=== PATIENT | female | born 1985 | race Caucasian/White ===

== ENCOUNTER 2018-09-22 13:40 | Outpatient (CLI) | payer MEDICAID ==
[2018-09-22 15:24] LABS: ADD UMIC YES; UR ASCORBIC ACID NEGATIVE (NEGATIVE); UR BACTERIA FEW /HPF (NONE SEEN); UR BILIRUBIN (Dip) NEGATIVE (NEGATIVE); UR BLOOD (Dip) NEGATIVE (NEGATIVE); UR CLARITY CLOUDY (CLEAR); UR COLOR STRAW (YELLOW); UR GLUCOSE (Dip) NEGATIVE (NEGATIVE); UR KETONES (Dip) 1+ mg/dL (NEGATIVE); UR LEUKOCYTE ESTERASE (Dip) 2+ Leu/ul (NEGATIVE); UR NITRITE (Dip) NEGATIVE (NEGATIVE); UR RBC 3 /HPF (0-5); UR SPECIFIC GRAVITY (Dip) 1.003 (1.003-1.030); UR SQUAMOUS EPITHELIAL CELL MANY /HPF (FEW); UR TOTAL PROTEIN (Dip) NEGATIVE (NEGATIVE); UR UROBILINOGEN (Dip) NEGATIVE (NEGATIVE); UR WBC 6 /HPF (0-5)
== END 2018-09-22 17:00 | disposition home or self-care (01) ==
LOC: OBT 13:40 → L-D 13:41 → OBT 17:00
DX: O62.9 Abnormality of forces of labor, unspecified (principal); Z3A.23 23 weeks gestation of pregnancy
CPT/HCPCS: 76817; 81001

== ENCOUNTER 2019-01-06 11:46 | Inpatient (IN) | payer MEDICAID ==
[2019-01-06 12:47] LABS: ADD MAN DIFF? NO
[2019-01-06 12:59] LABS: BASOPHILS % 0.1 % (0.0-2.0); EOSINOPHILS % 0.3 % (0.0-7.0); HEMATOCRIT 40.9 % (37.0-47.0); HEMOGLOBIN 13.7 g/dl (12.0-16.0); LYMPHOCYTES # 2.3 10^3/ul (0.8-2.9); LYMPHOCYTES % 30.7 % (15.0-51.0); MEAN CORPUSCULAR HEMOGLOBIN 28.5 pg (29.0-33.0); MEAN CORPUSCULAR HGB CONC 33.5 g/dl (32.0-37.0); MEAN CORPUSCULAR VOLUME 85.2 fl (82.0-101.0); MEAN PLATELET VOLUME 11.1 fl (7.4-10.4); MONOCYTE # 0.5 10^3/ul (0.3-0.9); MONOCYTES % 7.3 % (0.0-11.0); NEUTROPHIL # 4.5 10^3/ul (1.6-7.5); NEUTROPHILS % 60.8 % (39.0-77.0); PLATELET COUNT 261 10^3/UL (140-415); RED CELL DISTRIBUTION WIDTH 13.7 % (11.5-14.5)
[2019-01-06 12:59] LABS: WHITE BLOOD COUNT 7.4 10^3/ul (4.8-10.8)
[2019-01-06 13:02] LABS: ADD UMIC YES; UR ASCORBIC ACID NEGATIVE (NEGATIVE); UR BACTERIA FEW /HPF (NONE SEEN); UR BILIRUBIN (Dip) NEGATIVE (NEGATIVE); UR BLOOD (Dip) 1+ mg/dL (NEGATIVE); UR CLARITY SLIGHTLY CLOUDY (CLEAR); UR COLOR YELLOW (YELLOW); UR GLUCOSE (Dip) NEGATIVE (NEGATIVE); UR KETONES (Dip) NEGATIVE (NEGATIVE); UR LEUKOCYTE ESTERASE (Dip) 2+ Leu/ul (NEGATIVE); UR MUCUS FEW /HPF (NONE SEEN); UR NITRITE (Dip) NEGATIVE (NEGATIVE); UR RBC 2 /HPF (0-5); UR SPECIFIC GRAVITY (Dip) 1.013 (1.003-1.030); UR SQUAMOUS EPITHELIAL CELL FEW /HPF (FEW); UR TOTAL PROTEIN (Dip) 1+ mg/dl (NEGATIVE); UR UROBILINOGEN (Dip) NEGATIVE (NEGATIVE); UR WBC 3 /HPF (0-5)
[2019-01-06 13:06] LABS: ALANINE AMINOTRANSFERASE 26 IU/L (13-69); ALBUMIN 3.5 g/dl (3.3-4.9); ALBUMIN/GLOBULIN RATIO 1.09; ALKALINE PHOSPHATASE 134 IU/L (42-121); ANION GAP 7 (5-13); ASPARTATE AMINO TRANSFERASE 31 IU/L (15-46); BILIRUBIN,INDIRECT 0.2 mg/dl (0-1.1); BILIRUBIN,TOTAL 0.2 mg/dl (0.2-1.3); BLOOD UREA NITROGEN 8 mg/dl (7-20); CALCIUM 9.5 mg/dl (8.4-10.2); CARBON DIOXIDE 21 mmol/L (21-31); CHLORIDE 111 mmol/L (97-110); CREATININE 0.51 mg/dl (0.44-1.00); Estimated GFR > 60 mL/min (>60); GLUCOSE 76 mg/dl (70-220); POTASSIUM 4.1 mmol/L (3.5-5.1); SODIUM 139 mmol/L (135-144); TOTAL PROTEIN 6.7 g/dl (6.1-8.1); URIC ACID 5.6 mg/dl (3.1-7.9)
[2019-01-06] MEDS ORDERED: OXYTOCIN 30 UNITS/LR 500 ML IV (15:00)
[2019-01-06] MEDS ORDERED: CARBOPROST 250 MCG INJ IM (15:00)
[2019-01-06] MEDS ORDERED: BUTORPHANOL 2 MG INJ IV ×2 (15:00)
[2019-01-06] MEDS ORDERED: LIDOCAINE 1% (MPF) 30 ML INJ INJ (15:00)
[2019-01-06] MEDS ORDERED: OXYCODONE/ASPIRIN (4.88/325) TAB PO (15:00)
[2019-01-06] MEDS ORDERED: MISOPROSTOL 200 MCG TAB PR (15:00)
[2019-01-06] MEDS ORDERED: IBUPROFEN 600 MG TAB PO (15:00)
[2019-01-06] MEDS ORDERED: METHYLERGONOVINE 0.2 MG INJ IM (15:00)
[2019-01-06 15:14] LABS: INR 0.91; PROTIME 12.4 Sec (11.9-14.9)
[2019-01-06 15:15] LABS: PARTIAL THROMBOPLASTIN TIME 27.3 Sec (23.0-35.0)
[2019-01-06] MEDS: LACTATED RINGER'S 1,000 ML IV (15:31)
[2019-01-06 15:47] LABS: HEPATITIS B SURFACE ANTIGEN NEGATIVE (NEGATIVE)
[2019-01-06] MEDS: AMPICILLIN 2 GM/NS (PMX) 100 ML IV (16:51)
[2019-01-06] MEDS: MISOPROSTOL 50 MCG CAPSULE PO ×2 (16:51→21:01)
[2019-01-06] MEDS: AMPICILLIN 1 GM/NS (PMX) 50 ML IV (21:01)
[2019-01-07] MEDS: AMPICILLIN 1 GM/NS (PMX) 50 ML IV ×2 (00:49→05:00)
[2019-01-07] MEDS: LACTATED RINGER'S 1,000 ML IV ×4 (00:49→22:54)
[2019-01-07] MEDS: MISOPROSTOL 50 MCG CAPSULE PO (05:00)
[2019-01-07] MEDS ORDERED: FENTAnyl 2MCG/ML-ROPIV 0.2% 100 ML (08:56)
[2019-01-07] MEDS: OXYTOCIN 30 UNITS/LR 500 ML IV ×3 (10:33→15:50)
[2019-01-07] MEDS ORDERED: NALOXONE (0.4 MG/ML) INJ IV (13:30)
[2019-01-07] MEDS ORDERED: FENTAnyl 2MCG/ML-ROPIV 0.2% 100 ML BAG EPI (13:30)
[2019-01-07] MEDS: DEXTROSE 5%-LR 1,000 ML IV ×2 (13:33→21:33)
[2019-01-07] MEDS: LACTATED RINGER'S 1,000 ML IV* ×2 (13:33→21:33)
[2019-01-07] MEDS: IBUPROFEN 600 MG TAB PO ×2 (13:48→18:00)
[2019-01-07] MEDS: BENZOCAINE 20% 56 ML SPRAY TOP (13:48)
[2019-01-07] MEDS: WITCH HAZEL/GLYCERIN PAD PR (13:48)
[2019-01-07] MEDS ORDERED: METHYLERGONOVINE 0.2 MG INJ IM (14:00)
[2019-01-07] MEDS ORDERED: SENNA/DOCUSATE NA (8.6MG/50MG) TAB PO (14:00)
[2019-01-07] MEDS ORDERED: ONDANSETRON 4 MG INJ IV (14:00)
[2019-01-07] MEDS ORDERED: ZOLPIDEM 5 MG TAB PO (14:00)
[2019-01-07] MEDS ORDERED: CARBOPROST 250 MCG INJ IM (14:00)
[2019-01-07] MEDS ORDERED: ACETAMINOPHEN 325 MG TAB PO (14:00)
[2019-01-07] MEDS ORDERED: DIBUCAINE 1% 30 GM OINT TOP (14:00)
[2019-01-07] MEDS ORDERED: MISOPROSTOL 200 MCG TAB PR (14:00)
[2019-01-07] MEDS ORDERED: DIPHENHYDRAMINE 50 MG INJ IV (14:00)
[2019-01-07] MEDS ORDERED: OXYTOCIN 30 UNITS/LR 500 ML IV (14:00)
[2019-01-07] MEDS ORDERED: LANOLIN HPA 1 PKT TOP (14:00)
[2019-01-07] MEDS: MISOPROSTOL 200 MCG TAB VAG (15:47)
[2019-01-07] MEDS: MISOPROSTOL 200 MCG TAB PO (15:47)
[2019-01-07 16:20] LABS: RAPID PLASMA REAGIN NONREACTIVE (NR)
[2019-01-07] MEDS: OXYCODONE/ASPIRIN (4.88/325) TAB PO (16:53)
[2019-01-08] MEDS: IBUPROFEN 600 MG TAB PO ×5 (00:03→23:56)
[2019-01-08] MEDS: LACTATED RINGER'S 1,000 ML IV* ×3 (05:33→21:33)
[2019-01-08] MEDS: DEXTROSE 5%-LR 1,000 ML IV ×3 (05:33→21:33)
[2019-01-08] MEDS: LACTATED RINGER'S 1,000 ML IV ×3 (06:27→21:55)
[2019-01-08 06:54] LABS: ADD MAN DIFF? NO
[2019-01-08 07:01] LABS: BASOPHILS % 0.1 % (0.0-2.0); EOSINOPHILS % 0.3 % (0.0-7.0); HEMATOCRIT 34.7 % (37.0-47.0); HEMOGLOBIN 11.5 g/dl (12.0-16.0); LYMPHOCYTES # 1.8 10^3/ul (0.8-2.9); LYMPHOCYTES % 25.9 % (15.0-51.0); MEAN CORPUSCULAR HEMOGLOBIN 29.1 pg (29.0-33.0); MEAN CORPUSCULAR HGB CONC 33.1 g/dl (32.0-37.0); MEAN CORPUSCULAR VOLUME 87.8 fl (82.0-101.0); MEAN PLATELET VOLUME 11.2 fl (7.4-10.4); MONOCYTE # 0.6 10^3/ul (0.3-0.9); MONOCYTES % 8.5 % (0.0-11.0); NEUTROPHIL # 4.4 10^3/ul (1.6-7.5); NEUTROPHILS % 64.5 % (39.0-77.0); PLATELET COUNT 207 10^3/UL (140-415); RED BLOOD COUNT 3.95 10^6/ul (4.20-5.40); RED CELL DISTRIBUTION WIDTH 13.9 % (11.5-14.5)
[2019-01-08 07:01] LABS: WHITE BLOOD COUNT 6.8 10^3/ul (4.8-10.8)
[2019-01-08] MEDS: MEASLES,MUMPS,RUBELLA VACCINE INJ SC* (14:16)
[2019-01-09] MEDS: LACTATED RINGER'S 1,000 ML IV* ×3 (05:33→21:33)
[2019-01-09] MEDS: DEXTROSE 5%-LR 1,000 ML IV ×3 (05:33→21:33)
[2019-01-09] MEDS: LACTATED RINGER'S 1,000 ML IV ×3 (06:29→22:54)
[2019-01-09] MEDS: IBUPROFEN 600 MG TAB PO ×3 (06:29→18:00)
[2019-01-09] MEDS: DIPHTH/TET/ACEL PERTUSS (ADULT) 0.5 ML VIAL IM* (09:00)
[2019-01-09] MEDS ORDERED: MEASLES,MUMPS,RUBELLA VACCINE INJ SC* (09:00)
[2019-01-10] MEDS: LACTATED RINGER'S 1,000 ML IV* (05:33)
[2019-01-10] MEDS: IBUPROFEN 600 MG TAB PO ×3 (06:00→11:12)
[2019-01-10] MEDS: DIPHTH/TET/ACEL PERTUSS (ADULT) 0.5 ML VIAL IM* (11:13)
== END 2019-01-10 14:30 | disposition left against medical advice (07) | DRG 807 ==
LOC: OBT 11:46 → PP1 01-07 11:38 → L-D 11:46 → OBT 14:52 → L-D 14:45
PROC: 10E0XZZ Delivery of Products of Conception, External Approach (ICD-10-PCS; principal; 2019-01-07)
DX: O14.94 Unspecified pre-eclampsia, complicating childbirth (principal); Z37.0 Single live birth; Z3A.38 38 weeks gestation of pregnancy
CPT/HCPCS: 62322; 76815; 76818; 80053; 81001; 84560; 85025; 85610; 85730; 86592; 86850; 86900; 86901; 87340; 90715